=== PATIENT | male | born 1955 | race Caucasian/White ===

== ENCOUNTER 2020-02-17 06:21 | Day surgery (SDC) | payer SELFPAY ==
[2020-02-17 06:30] VITALS: BP 138/90; PULSE 86; RESP 18; TEMP 36.1; O2SAT 98
[2020-02-17] MEDS: Tropicam./Phenyleph. (1/2.5%) 5 ML BTL OD ×3 (06:43→06:49)
[2020-02-17] MEDS: Moxifloxacin-PF 1 MG/ML VIAL (07:33)
[2020-02-17] MEDS: Balanced Salt Soln.-PLUS 500 ML BAG (07:35)
[2020-02-17] MEDS: Lidocaine 1% Pres-Free 5 ML VIAL (07:35)
[2020-02-17] MEDS: Lidocaine 2% Jelly 6 ML SYR (07:36)
[2020-02-17] MEDS: Povidone-Iodine Ophth 30 ML BTL (07:37)
[2020-02-17] MEDS: Trypan Blue 0.06% 0.5 ML SYR (07:38)
[2020-02-17] MEDS: Tetracaine 0.5% 4 ML BTL OD (07:40)
--- NOTE | 2020-02-17 08:04 | W.PM.DSUDISC ---
Discharge Plan Disposition Patient Disposition: HOME Condition: Good Discharge Details Attending Provider: Robbie Gordon Primary Care Provider: Amisha Aponte [place] Meds and New Rx's Prescriptions: No Action aspirin 325 mg Tablet 325 mg PO DAILY RF: 0 metoprolol tartrate 100 mg tablet 100 mg PO BID RF: 0 digoxin 250 mcg (0.25 mg) tablet 250 mcg PO DAILY RF: 0 furosemide 20 mg tablet 20 mg PO QAM RF: 0 glipizide 5 mg tablet 5 mg PO BID RF: 0 metformin 500 mg tablet 1,000 mg PO BIDWMEAL RF: 0 Discharge Instructions Stand Alone Forms: Post-op Topical Cataract, Tonia Ash (DSU) Discharge Orders Discharge Orders: Discharge Order (Routine); Ordered 02/17/20 Ordered By: Robbie Gordon DS: Diagnosis Discharge Diagnosis (1) Nuclear sclerotic cataract of right eye: Status: Acute (2) Posterior subcapsular age-related cataract, right eye: Status: Acute
--- NOTE | 2020-02-17 08:05 | W.PM.OP ---
Date of service: 02/17/20 Time of Service: 08:06 Operative Note Operative Note DATE OF PROCEDURE: 02/17/20 PRE-OP DIAGNOSIS: Moderate nuclear cataract right eye; poor red reflex, right eye POST-OP DIAGNOSIS: same PROCEDURE: Cataract extraction using phacoemulsification with intraocular lens implantation, right eye, using capsular staining with Vision Blue SURGEON: Robbie Gordon ANESTHESIA: MAC (with local sub-tenon's anesthetic injection) PATHOLOGY: none sent COMPLICATIONS: None Patient was transported to: same day Patient's condition: stable Implants: Jasvir and Jasvir / [employer] Tecnis [id number] Indications: Progressive visual loss due to cataract, right eye Procedure Description: CATARACT SURGERY OPERATIVE REPORT PREOPERATIVE DIAGNOSIS: 1. Mononuclear with posterior subcapsular cataract, right eye 2. Poor red reflex secondary to #1 POSTOPERATIVE DIAGNOSIS: Same OPERATION: 1. Cataract extraction using phacoemulsification with posterior chamber intraocular lens implant, right eye. 2. Capsular staining with Vision Blue IOL: IOL Double Cut Off Saw Operator/Model: Jasvir & Jasvir / MINNIE Tecnis [id number] IOL Power: + 19.50 diopters IOL Serial Number: [id number] Optic Diameter: 6.0mm Haptic/Overall Diameter: 13.0mm PHACO INFO: Lazarus Centurion Vision System with OZil and Active Fluidics Cumulative Dispersed Energy (CDE): 12.8 seconds SURGEON: Robbie Gordon MD, MAGDY ANESTHESIA: Monitored Anesthesia Care (MAC), with local sub-tenon's anesthetic infiltration COMPLICATIONS: None SPECIMENS: None INDICATIONS FOR PROCEDURE: The patient is a 58-YEAR-OLD eye. Dense posterior subcapsular cataract in the right eye with moderate nuclear cataract. Visual acuity is less than 20/400. PROCEDURE: The correct surgical eye was identified and marked as the right eye and the pupil was dilated in the preoperative area using mydriatics and cycloplegics. The dilated pupil size was 6.5 mm. Oral sedation was administered in the form of an Imprimis MKO Melt (midazolam 3mg/ketamine 25mg/ondansetron 2mg). The patient was brought to the operating room where cardiopulmonary monitoring was instituted and surgical time-out was performed, confirming the correct operative eye and IOL power. Topical anesthesia was administered and ophthalmic povidone-iodine 5% was instilled into the conjunctival fornices. Lidocaine gel was applied to the cornea and the dario-ocular area was prepped with Betadine 10% solution and draped in the usual sterile fashion for intraocular surgery, including an aperture drape. A Tegaderm transparent film dressing was cut in half and used to cover the lashes and lid margins. Care was taken to sequester the lashes and lid margins under the Tegaderm dressing. A lid speculum was placed between the lids of the operative eye and the Ajay-Shanice operating microscope was maneuvered into position. Charlotte scissors were then used to make a conjunctival buttonhole approximately 6mm posterior to the limbus in the inferonasal quadrant. Blunt dissection was carried out to expose bare sclera, and a blunt-tipped sub-tenon?s anesthesia cannula was introduced and passed posteriorly along the globe where non-preserved plain lidocaine was injected into posterior sub-Tenon?s space. A sideport knife was used to make a paracentesis port inferotemporally. Intraocular phenylephrine/lidocaine was injected into the anterior chamber. Air was injected into the anterior chamber, followed by Vision Blue, which was painted over the anterior capsule and then irrigated out with BSS. The anterior chamber was filled with Healon Pro. A 2.4mm keratome knife was used to create a half-thickness groove at the limbus and then to construct a three-plane near-clear corneal tunnel extending 2.0mm into clear cornea superiortemporally. A flap was raised on the anterior capsule and capsulorhexis forceps were used to complete a continuous curvilinear capsulorhexis of 5.0 mm. The capsule was noted. Balanced salt solution was then used to perform cortical cleaving hydrodissection and nuclear hydrodelineation until the lens could be freely rotated within the capsular bag. The lens nucleus was then disassembled and removed within the capsular bag and iris plane using phacoemulsification. Residual cortical material was removed using the I/A handpiece. The posterior capsule was carefully polished to remove as much residual lens epithelial cells as safely possible. The capsular bag was then inflated and the anterior chamber deepened with viscoelastic. The lens implant described above was inserted into the capsular bag using the MINNIE [place] Injector. A Kuglen hook was used to dial the IOL into position. Residual viscoelastic was then removed first from posterior to the IOL, then from the anterior chamber using the I/A handpiece. The lens implant was noted to center nicely within the capsular bag. The incisions were stromally hydrated, and the anterior chamber was reformed using BSS. Then 0.5cc of moxifloxacin 1.0mg/ml were injected into the capsular bag and anterior chamber. The incisions were checked with a Weck spear and found to be secure. Several drops of ophthalmic povidone-iodine 5% were then applied to the eye followed by two drops of Imprimis combination prednisolone/moxifloxacin/nepafenac solution. The drapes were removed and a clear plastic protective eye shield was placed over the eye. The patient was then returned to Same Day Surgery in stable condition.
[2020-02-17 08:30] VITALS: BP 111/77; PULSE 66; RESP 16; TEMP 36.6; O2SAT 97
== END 2020-02-17 08:35 | disposition home or self-care (01) ==
PROVIDERS: PCP Internal Medicine; Visit Provider Ophthalmology
PROC: (CPT 66984; principal; 2020-02-17 07:30)
DX: H25.11 Age-related nuclear cataract, right eye (principal); I48.91 Unspecified atrial fibrillation; I50.9 Heart failure, unspecified; E11.9 Type 2 diabetes mellitus without complications
CPT/HCPCS: 66984; V2632

== ENCOUNTER 2020-03-02 07:31 | Day surgery (SDC) | payer SELFPAY ==
[2020-03-02 07:35] VITALS: BP 142/84; PULSE 77; RESP 18; TEMP 36.2; O2SAT 98
[2020-03-02] MEDS: Tropicam./Phenyleph. (1/2.5%) 5 ML BTL OS ×3 (07:47→07:58)
[2020-03-02] MEDS: Tetracaine 0.5% 4 ML BTL OS (08:53)
[2020-03-02] MEDS: Povidone-Iodine Ophth 30 ML BTL (08:53)
[2020-03-02] MEDS: Lidocaine 2% Jelly 6 ML SYR (08:54)
[2020-03-02] MEDS: Lidocaine 1% Pres-Free 5 ML VIAL (08:58)
[2020-03-02] MEDS: Balanced Salt Soln.-PLUS 500 ML BAG (09:02)
[2020-03-02] MEDS: Trypan Blue 0.06% 0.5 ML SYR (09:07)
[2020-03-02] MEDS: Moxifloxacin-PF 1 MG/ML VIAL (09:19)
--- NOTE | 2020-03-02 09:24 | W.PM.DSUDISC ---
Discharge Plan Disposition Patient Disposition: HOME Condition: Good Discharge Details Reason For Visit: CATARACT Attending Provider: Robbie Gordon Primary Care Provider: Amisha Aponte Home Meds and New Rx's Prescriptions: No Action aspirin 325 mg Tablet 325 mg PO DAILY RF: 0 metoprolol tartrate 100 mg tablet 100 mg PO BID RF: 0 digoxin 250 mcg (0.25 mg) tablet 250 mcg PO DAILY RF: 0 furosemide 20 mg tablet 20 mg PO QAM RF: 0 glipizide 5 mg tablet 5 mg PO BID RF: 0 metformin 500 mg tablet 1,000 mg PO BIDWMEAL RF: 0 Discharge Instructions Stand Alone Forms: Post-op Topical Cataract, Tonia Ash (DSU) Discharge Orders Discharge Orders: Discharge Order (Routine); Ordered 03/02/20 Ordered By: Robbie Gordon DS: Diagnosis Discharge Diagnosis (1) Posterior subcapsular age-related cataract of left eye: Status: Resolved (2) Nuclear sclerotic cataract of left eye: Status: Resolved
--- NOTE | 2020-03-02 09:27 | ROE_ITS ---
Date of service: 03/02/20 Time of Service: 09:28 Operative Note Operative Note DATE OF PROCEDURE: 03/02/20 PRE-OP DIAGNOSIS: Nuclear/posterior subcapsular cataract, left eye POST-OP DIAGNOSIS: same PROCEDURE: Cataract extraction using phacoemulsification with intraocular lens implant, left eye, using capsular staining with Vision Blue SURGEON: Robbie Gordon ANESTHESIA: MAC (with local sub-tenon's anesthetic injection) COMPLICATIONS: None Patient was transported to: same day Patient's condition: stable Implants: Jasvir and Jasvir / [employer] Tecnis [id number] Indications: Progressive decreased vision due to cataract, left eye, with poor red reflex Procedure Description: CATARACT SURGERY OPERATIVE REPORT PREOPERATIVE DIAGNOSIS: 1. Nuclear/posterior subcapsular cataract, left eye 2. Poor red reflex secondary to #1 POSTOPERATIVE DIAGNOSIS: Same OPERATION: 1. Cataract extraction using phacoemulsification with posterior chamber intraocular lens implant, left eye. 2. Capsular staining with Vision Blue IOL: IOL Driller Operator/Model: Jasvir & Jasvir / MINNIE Tecnis [id number] IOL Power: + 19.50 diopters IOL Serial Number: [id number] Optic Diameter: 6.0 mm Haptic/Overall Diameter: 13.0 mm PHACO INFO: Lazarus Centurion Vision System with OZil and Active Fluidics Cumulative Dispersed Energy (CDE): 8.48 seconds SURGEON: Robbie Gordon MD, MAGDY ANESTHESIA: Monitored [facility] Care (MAC), with local sub-tenon's anesthetic infiltration COMPLICATIONS: None SPECIMENS: None INDICATIONS FOR PROCEDURE: The patient is a 64-year-old gentleman with history of diminished visual acuity in both eyes secondary to the development of bilateral nuclear and posterior subcapsular cataract. He has already undergone cataract surgery of the right eye and is doing well postoperatively. Now presents for cataract surgery left eye. PROCEDURE: The correct surgical eye was identified and marked as the left eye and the pupil was dilated in the preoperative area using mydriatics and cycloplegics. The dilated pupil size was 8.0 mm. Oral sedation was administered in the form of an Imprimis MKO Melt (midazolam 3mg/ketamine 25mg/ondansetron 2mg). The patient was brought to the operating room where cardiopulmonary monitoring was instituted and surgical time-out was performed, confirming the correct operative eye and IOL power. Topical anesthesia was administered and ophthalmic povidone-iodine 5% was instilled into the conjunctival fornices. Lidocaine gel was applied to the cornea and the dario-ocular area was prepped with Betadine 10% solution and draped in the usual sterile fashion for intraocular surgery, including an aperture drape. A Tegaderm transparent film dressing was cut in half and used to cover the lashes and lid margins. Care was taken to sequester the lashes and lid margins under the Tegaderm dressing. A lid speculum was placed between the lids of the operative eye and the Ajay-Shanice operating microscope was maneuvered into position. Charlotte scissors were then used to make a conjunctival buttonhole approximately 6mm posterior to the limbus in the inferonasal quadrant. Blunt dissection was carried out to expose bare sclera, and a blunt-tipped sub-tenon?s anesthesia cannula was introduced and passed posteriorly along the globe where non- preserved plain lidocaine was injected into posterior sub-Tenon?s space. A sideport knife was used to make a paracentesis port superiorly/superiortemporally. Intraocular phenylephrine/lidocaine was injected int the anterior chamber.. Air was then injected into the anterior chamber, followed by Vision Blue, which was painted over the anterior capsule and then irrigated out using BSS. The anterior chamber was filled with Healon Pro. A 2.4mm keratome knife was used to create a half-thickness groove at the limbus and then to construct a three-plane near-clear corneal tunnel extending 2.0mm into clear cornea at the 3:00 position. A flap was raised on the anterior capsule and capsulorhexis forceps were used to complete a continuous curvilinear capsulorhexis of 5.0 mm. Capsule was noted to be quite thin with a deep anterior chamber. Balanced salt solution was then used to perform cortical cleaving hydrodissection and nuclear hydrodelineation until the lens could be freely rotated within the capsular bag. The lens nucleus was then disassembled and removed within the capsular bag and iris plane using phacoemulsification. Residual cortical material was removed using the 45-degree angled silicone I/A tip with 0.3mm port. The posterior capsule was carefully polished to remove as much residual lens epithelial cells as safely possible. The capsular bag was then inflated and the anterior chamber deepened with viscoelastic. The lens implant described above was inserted into the capsular bag using the MINNIE [place] Injector. A Kuglen hook was used to dial the IOL into position. Residual viscoelastic was then removed first from posterior to the IOL, then from the anterior chamber using the I/A handpiece. The lens implant was noted to center nicely within the capsular bag. The incisions were stromally hydrated, and the anterior chamber was reformed using BSS. Then 0.5cc of moxifloxacin 1.0mg/ml were injected into the capsular bag and anterior chamber. The incisions were checked with a Weck spear and found to be secure. Several drops of ophthalmic povidone-iodine 5% were then applied to the eye followed by two drops of Imprimis combination prednisolone/moxifloxacin/nepafenac solution. The drapes were removed and a clear plastic protective eye shield was placed over the eye. The patient was then returned to Same Day Surgery in stable condition.
[2020-03-02 09:50] VITALS: BP 123/78; PULSE 60; RESP 16; TEMP 36.1; O2SAT 99
== END 2020-03-02 09:50 | disposition home or self-care (01) ==
PROVIDERS: PCP Internal Medicine; Visit Provider Ophthalmology
PROC: (CPT 66984; principal; 2020-03-02 09:30)
DX: H25.042 Posterior subcapsular polar age-related cataract, left eye (principal)
CPT/HCPCS: 66984; V2632

== ENCOUNTER 2024-01-10 06:23 | Emergency (ER) | payer SELFPAY ==
[2024-01-10] VITALS (57 sets, daily range): BP systolic 106–151; BP diastolic 64–125; PULSE 65–173; RESP 9–30; O2SAT 99
--- NOTE | 2024-01-10 06:15 | RT.EKG_ITS ---
APPROVED REPORT Exam: Resting ECG Reason for Exam: SOB Patient Location: E HR:141 bpm ECG Measurements Heart Rate 141 AXIS MS [id number] P [id number] QRSd 93 QRS 85 QT 333 T [id number] QTc 511 Conclusion Atrial fibrillation...? atrial activity Repolarization abnormality, prob rate related...ST dep, T neg, tachycardia Prolonged QT interval...QTc >500mS Physician: no stemi
[2024-01-10] MEDS: Furosemide 40 MG/4 ML VIAL IVP (06:35)
[2024-01-10 06:39] LABS: Abs Immature Grans 0.03 10^3/uL (0.0-0.06); Absolute Basophil Count 0.05 10^3/uL (0.0-0.2); Absolute Lymphocyte Count 1.62 10^3/uL (1.2-3.4); Absolute Monocyte Count 0.72 10^3/uL (0.1-0.8); Absolute Neutrophil Count 5.84 10^3/uL (1.2-6.7); Basophils % 0.6 %; Eosinophils % 1.2 %; HCT 47.5 % (40.0-50.0); HGB 15.5 g/dL (13.5-17.5); Immature Grans % 0.4 %; Lymphocytes % 19.4 %; MCH 29.9 pg (27.0-33.0); MCHC 32.6 % (32.0-36.0); MCV 92 fL (80-95); Monocytes % 8.6 %; Neutrophils % 69.8 %; Platelet Count 199 10^3/uL (130-400); RBC 5.19 10^6/uL (4.36-5.78); RDW 14.6 % (11.8-14.1); RDW-SD 48.6 fL; WBC 8.36 10^3/uL (4.4-10.8)
[2024-01-10] MEDS: nitroGLYcerin in D5W 50 MG/250 ML BTL 15 MG IV (06:39)
--- NOTE | 2024-01-10 06:43 | DI.RAD_ITS ---
Exam(s) XR PORTABLE CHEST AP EXAM: XR PORTABLE CHEST AP CLINICAL HISTORY: SOB TECHNIQUE: 2D digital imaging was performed of the chest. One image was obtained. An AP view was ob tained. COMPARISON: No exams were available for comparison FINDINGS: MEDIASTINUM: Normal. HEART: Mild cardiomegaly. PULMONARY VASCULATURE: Normal. LUNGS: No focal consolidating infiltrates. Atelectasis or scarring is seen in the lungs. PLEURAL SPACE: No pleural effusion or pneumothorax. BONE:Within normal limits for the patient's age. OTHER FINDINGS:Normal. IMPRESSION: No focal consolidating infiltrates. DATA REPOSITORY: RADIATION DOSE DELIVERED:
[2024-01-10] MEDS: Albuterol/Ipratropium 3 ML UPD VIAL UPD (06:44)
[2024-01-10 06:54] LABS: INR 1.1 (0.9-1.1); PTT Activated 25.6 sec (23.6-32.8); Prothrombin Time 11.4 sec (9.1-11.1)
[2024-01-10 07:02] LABS: ALT 24 U/L (16-63); AST 20 U/L (15-37); Albumin 3.6 g/dL (3.4-5.0); Alkaline Phosphatase 71 U/L (46-116); Anion Gap 13.7 mmol/L (3-11); BUN 27 mg/dL (7-18); CO2 24.3 mmol/L (21.0-32.0); CREATININE 1.7 mg/dL (0.70-1.30); Calcium 9.3 mg/dL (8.5-10.1); Chloride 99 mmol/L (98-107); Estimated GFR 42.83 (mL/min/1.73m2); Glucose 197 mg/dL (74-106); NT-proBNP 2296 pg/mL (<300); Potassium 3.9 mmol/L (3.5-5.1); Sodium 137 mmol/L (136-145); Total Protein 6.9 g/dL (6.4-8.2); Troponin I 50 ng/L (< or =60)
--- NOTE | 2024-01-10 07:04 | W.EDPROG ---
Medical Decision Making Quality:SDOH Health Related Social Needs: No Data to Display Discharge Plan Discharge Details Chief Complaint: SOB Primary Care Provider: Amisha Aponte ED Provider: Hugo Flores Home Meds and New Rx's Prescriptions: No Action aspirin 325 mg Tablet 325 mg PO DAILY metoprolol tartrate 100 mg tablet 100 mg PO BID Patient Comments: TAKE 1 TABLET BY MOUTH TWICE DAILY digoxin 250 mcg (0.25 mg) tablet 250 mcg PO DAILY Patient Comments: TAKE 1 TABLET BY MOUTH ONCE DAILY furosemide 20 mg tablet 20 mg PO QAM Patient Comments: TAKE 1 TABLET BY MOUTH ONCE DAILY IN THE MORNING glipizide 5 mg tablet 5 mg PO BID Patient Comments: TAKE 1 TABLET BY MOUTH TWICE DAILY FOR 30 DAYS metformin 500 mg tablet 1,000 mg PO BIDWMEAL Patient Comments: TAKE 2 TABLETS BY MOUTH TWICE DAILY WITH MEALS
[2024-01-10] MEDS: dilTIAZem 25 MG/5 ML VIAL 15 MG IVP (07:16)
[2024-01-10 07:20] LABS: COVID-19 PCR Negative (Negative); Influenza A PCR Negative (Negative); Influenza B PCR Negative (Negative); RSV PCR Negative (Negative); Source Nasopharynx
--- NOTE | 2024-01-10 07:27 | ED.GENADUL_ITS ---
Discharge Plan Discharge Details Chief Complaint: SOB Primary Care Provider: Amisha Aponte ED Provider: Hugo Flores Home Meds and New Rx's Prescriptions: No Action aspirin 325 mg Tablet 325 mg PO DAILY metoprolol tartrate 100 mg tablet 100 mg PO BID Patient Comments: TAKE 1 TABLET BY MOUTH TWICE DAILY digoxin 250 mcg (0.25 mg) tablet 250 mcg PO DAILY Patient Comments: TAKE 1 TABLET BY MOUTH ONCE DAILY furosemide 20 mg tablet 20 mg PO QAM Patient Comments: TAKE 1 TABLET BY MOUTH ONCE DAILY IN THE MORNING glipizide 5 mg tablet 5 mg PO BID Patient Comments: TAKE 1 TABLET BY MOUTH TWICE DAILY FOR 30 DAYS metformin 500 mg tablet 1,000 mg PO BIDWMEAL Patient Comments: TAKE 2 TABLETS BY MOUTH TWICE DAILY WITH MEALS HPI General Date/Time Provider Initiated Documentation: 01/10/24 06:24 . HPI Narrative: This is a 68-year-old male with a past medical history of previous smoking, atrial fibrillation on digoxin in the past, congestive heart failure on furosemide in the past, type 2 diabetes, who no longer takes any medications except for his daily aspirin and does not see a doctor because I fired him. He presents today for shortness of breath. The patient states that for the last month he has been short of breath. He admits to swelling in his lower extremities. He states that it was worse tonight than normal. He denies any chest pain, cough, fever or chills. He denies any positional chest pain. He denies any vomiting or diarrhea. No other complaints at this time. No other modifying factors. He denies history of heart attack before. He is not on any blood thinner use. Related Data Home Medications ?Medication ?Instructions ?Recorded ?Confirmed aspirin 325 mg tablet 325 mg PO DAILY 02/14/20 01/10/24 digoxin 250 mcg (0.25 mg) tablet 250 mcg PO DAILY 02/14/20 01/10/24 furosemide 20 mg tablet 20 mg PO QAM 02/14/20 01/10/24 glipizide 5 mg tablet 5 mg PO BID 02/14/20 01/10/24 metformin 500 mg tablet 1,000 mg PO BIDWMEAL 02/14/20 01/10/24 metoprolol tartrate 100 mg tablet 100 mg PO BID 02/14/20 01/10/24 Allergies Allergy/AdvReac Type Severity Reaction Status Date / Time ibuprofen Allergy Severe Anaphylaxsi Unverified 01/10/24 06:30 s General Stated Complaint: SOB GETACHEW: 2 Review of Systems All systems reviewed & are unremarkable except as noted in HPI and below Exam Narrative Exam Narrative: 1.Const: Well-nourished, Well-developed, appearing stated age 2.Eyes: PERRL, no conjunctival injection, and symmetrical lids. 3.ENT: Atraumatic external nose and ears. Moist MM. Neck: Symmetric, trachea midline, No thyromegaly. 4.CVS: +S1/S2, No murmurs or gallops. Peripheral pulses 2+ and equal in all extremities. Brisk capillary refill in all extremities. 5.RESP: Tachypneic, 1-2 word sentences. Saturating 99% on room air. Crackles at the bases. No wheezes or rhonchi. 6.GI: Soft, Nontender/Nondistended, No hepatosplenomegaly. No guarding or rebound. 7.MSK: Normocephalic/Atraumatic, Extremities w/o deformity or ttp No cyanosis or clubbing, Normal movement of all extremities. +1 pitting edema bilaterally. No calf tenderness. 8.Skin: Warm, Dry. No rashes or lesions. 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 Sensation grossly intact, no focal neurologic deficits. 10.Psych: (AAO) x3. Appropriate mood and affect Course Vital Signs Vital signs: Vital Signs Pulse 130 H 01/10/24 06:26 Respiratory Rate 30 H 01/10/24 06:26 Blood Pressure 145/102 H 01/10/24 06:26 Pulse Oximetry 99 01/10/24 06:26 Pulse 110 H 01/10/24 07:16 Pulse 114 H 01/10/24 06:41 Respiratory Rate 15 01/10/24 06:41 Respiratory Effort Short of Breath 01/10/24 06:32 Respiratory Depth Shallow 01/10/24 06:32 Respiratory Pattern Tachypnea 01/10/24 06:32 Blood Pressure 121/85 01/10/24 07:16 Blood Pressure Mean 108 01/10/24 06:41 Blood Pressure Position Sitting 01/10/24 06:26 Pulse Oximetry 99 01/10/24 06:26 Oxygen Delivery Method Room Air 01/10/24 06:26 Oxygen Flow Rate 0 01/10/24 06:26 Lab/Test Results Lab/Test Results: Laboratory Tests Range/Units 01/10/24 01/10/24 06:30 06:37 WBC (4.4-10.8) 10^3/uL 8.36 RBC (4.36-5.78) 10^6/uL 5.19 Hgb (13.5-17.5) g/dL 15.5 Hct (40.0-50.0) % 47.5 MCV (80-95) fL 92 MCH (27.0-33.0) pg 29.9 MCHC (32.0-36.0) % 32.6 RDW (11.8-14.1) % 14.6 H Plt Count (130-400) 10^3/uL 199 MPV (8.0-11.0) fL 10.0 Immature Gran % % 0.4 Neutrophils % % 69.8 Lymphocytes % % 19.4 Monocytes % % 8.6 Eosinophils % % 1.2 Basophils % % 0.6 Nucleated RBC % (0.0-0.3) % 0.0 Absolute Neutrophils (1.2-6.7) 10^3/uL 5.84 Absolute Lymphocytes (1.2-3.4) 10^3/uL 1.62 Absolute Monocytes (0.1-0.8) 10^3/uL 0.72 Absolute Eosinophils (0.0-0.7) 10^3/uL 0.10 Absolute Basophils (0.0-0.2) 10^3/uL 0.05 PT (9.1-11.1) sec 11.4 H INR (0.9-1.1) 1.1 APTT (23.6-32.8) sec 25.6 Sodium (136-145) mmol/L 137 Potassium (3.5-5.1) mmol/L 3.9 Chloride (98-107) mmol/L 99 Carbon Dioxide (21.0-32.0) mmol/L 24.3 Anion Gap (3-11) mmol/L 13.7 H BUN (7-18) mg/dL 27 H Creatinine (0.70-1.30) mg/dL 1.7 H Est GFR (CKD-EPI 2020) (mL/min/1.73m2) 42.83 Glucose (74-106) mg/dL 197 H Calcium (8.5-10.1) mg/dL 9.3 Total Bilirubin (0.2-1.0) mg/dL 0.70 AST (15-37) U/L 20 ALT (16-63) U/L 24 Alkaline Phosphatase (46-116) U/L 71 Troponin I (< or =60) ng/L 50 NT-Pro-B Natriuret Pep (<300) pg/mL 2296 H Total Protein (6.4-8.2) g/dL 6.9 Albumin (3.4-5.0) g/dL 3.6 COVID-19 Source Nasopharynx SARS-CoV-2 (PCR) (Negative) Negative Influenza Type A (PCR) (Negative) Negative Influenza Type B (PCR) (Negative) Negative RSV (PCR) (Negative) Negative Medical Decision Making This is a 68-year-old male with a past medical history of previous smoking, atrial fibrillation on digoxin in the past, congestive heart failure on furosemide in the past, type 2 diabetes, who no longer takes any medications except for his daily aspirin and does not see a doctor because I fired him. He presents today for shortness of breath. The patient states that for the last month he has been short of breath. He admits to swelling in his lower extremities. He states that it was worse tonight than normal. He denies any chest pain, cough, fever or chills. He denies any positional chest pain. He denies any vomiting or diarrhea. No other complaints at this time. No other modifying factors. He denies history of heart attack before. He is not on any blood thinner use. Exam demonstrates a conversationally dyspneic patient, however he is saturating well at room air. +1 to +2 pitting edema in the lower extremities, mild crackles at the bases. No significant wheeze though. He denies fever or chills. Differential includes CHF, less likely reactive airway disease. PE is on the differential, pneumonia less likely given no cough or fever. EKG shows A-fib with a rapid response in the 140s, which certainly could be potentially contributing to a CHF component. Patient is notably hypertensive with a narrow pulse pressure, we will give 40 of Lasix, start IV nitro at 50, give a breathing treatment, monitor closely and reassess. Will give 15 of diltiazem for his A- fib with a rapid rate. 7:43 AM On reassessment the patient is doing much better. His conversational dyspnea has completely resolved, he has urinated a few times, his heart rate has come down after the diltiazem. He is demonstrating significant clinical improvement. Still pending D-dimer and repeat troponin at this time. Patient will be signed out to my colleague Dr. Nicole Carvajal for follow-up on labs. FINDINGS: Tubes, catheters and devices: Overlying monitoring leads. Lungs: Right mid lung field opacity. Few probable left lower lung field areas of linear atelectasis. Pleural spaces: No pleural effusion. No pneumothorax. Heart/Mediastinum: Heart within normal range for projection. Vasculature: Aortic tortuosity. Bones/joints: Unremarkable. IMPRESSION: Right mid lung field opacity. Consider atelectasis or pneumonia. Thank you for allowing us to participate in the care of your patient. Dictated and Authenticated by: Hernán Martinez MD 01/10/2024 7:28 AM Eastern Time ([place] & [place]) Quality:SDOH Health Related Social Needs: No Data to Display PFSH All Active Problems Nuclear sclerotic cataract of right eye (Acute) Posterior subcapsular age-related cataract, right eye (Acute) Medical History Elevated hemoglobin A1c 9.9% per H&P note Tricuspid regurgitation mild per note Atrial fibrillation with rapid ventricular response Diabetes mellitus CHF (congestive heart failure) Surgical History History of cataract surgery History of tonsillectomy and adenoidectomy Social History Smoking/Tobacco Use Status: Former Tobacco Use Quit Date: 05/25/89 Smoking risk assessment performed?: Yes Alcohol Intake: current Alcohol Intake frequency: holidays/special occasions only Alcohol type: hard liquor Drug use: Never Substance use type: does not use Do you feel safe at home: Yes Do you feel safe in your relationship?: Yes
--- NOTE | 2024-01-10 07:29 | DI.VRAD_ITS ---
PROCEDURE INFORMATION: Exam: XR Chest Exam date and time: 01/10/2024 6:41 AM Age: 68 years old Clinical indication: Shortness of breath; Patient HX: SOB TECHNIQUE: Imaging protocol: Radiologic exam of the chest. Views: 1 view. COMPARISON: No prior studies were available at the time of this dictation. FINDINGS: Tubes, catheters and devices: Overlying monitoring leads. Lungs: Right mid lung field opacity. Few probable left lower lung field areas of linear atelectasis. Pleural spaces: No pleural effusion. No pneumothorax. Heart/Mediastinum: Heart within normal range for projection. Vasculature: Aortic tortuosity. Bones/joints: Unremarkable. IMPRESSION: Right mid lung field opacity. Consider atelectasis or pneumonia. Dictated and Authenticated by: Hernán Martinez MD. Ordering:ARUNA Arias MD
--- NOTE | 2024-01-10 07:36 | NUR.NOTE ---
Nursing Note: pt ambulated to restroom per his request. Reports voiding large amount in toilet; not measured by staff. Pt reports feeling better than when he arrived, and appears mildly short of breath upon ambulating back to room. There is no noted increased WOB and he is not orthopnic or struggling; 3-5 word dyspnea continues.
[2024-01-10 07:59] LABS: D-Dimer 1119 ng/mlFEU (<500)
--- NOTE | 2024-01-10 08:00 | DI.CT_ITS ---
Exam(s) CT CHEST PE CTA EXAM: CT CHEST PE CTA CLINICAL HISTORY: eval for PE. TECHNIQUE: Imaging Protocol: Axial CT angiography was performed with multi-slice acquisition and mu lti-planar and/or 3D reconstructions. CONTRAST MATERIAL: Intravenous: Omnipaque 350 contrast volume:100 mL COMPARISON: CR,XR XR PORTABLE CHEST AP from 01/10/2024 FINDINGS: Tracheobronchial tree: Patent where visualized. No bronchiectasis. Pulmonary parenchyma: There is a small to moderate size right pleural effusion and or small left pleu ral effusion. Atelectatic changes are seen in the right lung base. No focal consolidating infiltrat es are present. No architectural distortion. Pulmonary Arteries: No evidence of filling defect to suggest pulmonary emboli. Mediastinum and Tosin: No dominant adenopathy or fluid collection. The esophagus is unremarkable. Visualized thyroid gland: The left lobe of the thyroid gland is enlarged. There appears to be a hypo dense lesion in the left lobe. Nonemergent thyroid ultrasound is recommended for further evaluation. Pleura: No pneumothorax. Heart: Mild cardiomegaly. Coronary artery calcifications are present. No pericardial effusion. Aorta: Thoracic aorta non-dilated. Due to the timing of the bolus, the aorta is suboptimal opacified. Upper abdomen: Unremarkable. Soft tissues: Unremarkable. Bones: Within normal limits for the patient's age. IMPRESSION: 1. No evidence of a pulmonary embolism or thoracic aortic aneurysm. 2. Cardiomegaly. 3. Small to moderate right and small left pleural effusion. 4. Mild atelectasis in the right lung base. No focal consolidating infiltrate. RADIATION DOSE DELIVERED: Total DLP DATA REPOSITORY: All CT scans at this facility are submitted to the National Radiology Data Registry (NRDR) Dose Index Registry (DIR) with the [employer] ([employer]). RADIATION OPTIMIZATION: All CT scans at this facility use at least one of these dose optimization te chniques: automated exposure control; mA and/or kV adjustment per patient size (includes targeted exa ms where dose is matched to clinical indication); or iterative reconstruction.
[2024-01-10] MEDS: Normal Saline - Diluent 50 ML VIAL IJ (08:30)
[2024-01-10] MEDS: Omnipaque 350 MG/ML 100 ML BTL IJ (08:30)
--- NOTE | 2024-01-10 09:03 | DI.VRAD_ITS ---
PROCEDURE INFORMATION: Exam: CTA Chest With Contrast Exam date and time: 01/10/2024 8:24 AM Age: 68 years old Clinical indication: Other: Trauma, lateral ankle pain TECHNIQUE: Imaging protocol: Computed tomographic angiography of the chest with contrast. Exam focused on the arteries. 3D rendering (Not supervised by radiologist): MIP and/or 3D reconstructed images were created by the technologist. Contrast material: OMNIPAQUE 350; Contrast volume: 100 ml; Contrast route: INTRAVENOUS (IV); COMPARISON: CR XR PORTABLE CHEST AP 01/10/2024 6:41 AM FINDINGS: Pulmonary arteries: Normal. No pulmonary emboli. Aorta: Unremarkable. No aortic aneurysm. No aortic dissection. Lungs: There is minimal bibasilar atelectasis. No consolidation. No masses. Pleural spaces: Moderate right and small left pleural effusions. There is no evidence of pneumothorax. Heart: Moderate cardiomegaly. Coronary arteries: There is coronary artery calcification. Lymph nodes: Unremarkable. No enlarged lymph nodes. Bones/joints: Unremarkable. No acute fracture. Soft tissues: Unremarkable. IMPRESSION: CHF fluid overload. No pulmonary embolism. Dictated and Authenticated by: Penelope Ortiz MD. Ordering:ARUNA Arias MD
--- NOTE | 2024-01-10 09:24 | ED.PROG_ITS ---
Date of service: 01/10/24 Time of Service: 09:24 Medical Decision Making Care assumed from outgoing provider Dr. Flores. Patient is a 68-year-old gentleman who has been noncompliant with medical therapy and who presented to the emergency department with severe shortness of breath. Initial concerns for hypertensive emergency pulmonary edema. Patient was started on a nitroglycerin drip which was eventually titrated off. He was noted to have A-fib with RVR and was given diltiazem for rate control. Blood work was concerning for a creatinine of 1.7, baseline is not known. Troponin is negative, but BNP elevated at 2300. The D-dimer was obtained and this is also elevated over 1000. A CTA was obtained that did not demonstrate pulmonary embolism, but did demonstrate cardiomegaly and pulmonary edema. The patient has been monitored on telemetry with out signs of hypoxia. Rate control has improved blood pressure initially low after nitroglycerin drip but has returned back up to appropriate levels. I feel that the patient would benefit from hospitalization for further diuresis and management of his CHF and reinitiation of medications. The patient has decided to go refused hospitalization at this time. I had a long discussion with the patient regarding risks, benefits, and alternatives to my recommended treatment plan, which includes hospitalization, echo, diuresis, heart rate and blood pressure management and the patient declined, voicing understanding of the risks but preferring instead to leave against medical advice. Some of the risks we specifically discussed included permanent disability or . I discussed with the patient that they were always welcome back to this department should they change their mind, and that regardless they should follow up with their primary care doctor at the soonest possible opportunity. All questions were answered and the patient left AMA in unchanged condition. Medical Records Medical records reviewed: Yes I reviewed the patient's medical records. Lab Data Lab results reviewed: Yes I reviewed the patient's lab results. Quality:SDOH Health Related Social Needs: No Data to Display Sign Out Sign Out Data: Sign Out Comment: Presented with notable conversational dyspnea, some evidence of fluid overload, patient was started on nitro, Lasix, breathing treatment and diltiazem. Notable clinical improvement at this time. Patient feels much better. Pending D-dimer and repeat troponin. Last updated by Hugo Flores DO at 01/10/24 07:45 Discharge Plan Disposition Patient Disposition: Against Medical Advice Condition: Stable Discharge Details Clinical Impression: CHF (congestive heart failure), Hypertension, Shortness of breath, Volume overload, Atrial fibrillation Primary Care Provider: Amisha Aponte ED Provider: Kwame Jones Home Meds and New Rx's Prescriptions: Continued metformin 500 mg tablet 1,000 mg PO BIDWMEAL Qty: 30 0RF metoprolol tartrate 100 mg tablet 100 mg PO BID Qty: 30 0RF digoxin 250 mcg (0.25 mg) tablet 250 mcg PO DAILY Qty: 30 0RF furosemide 20 mg tablet 20 mg PO QAM Qty: 30 0RF glipizide 5 mg tablet 5 mg PO BID Qty: 30 0RF Discontinued aspirin 325 mg Tablet 325 mg PO DAILY Discharge Instructions Instructions: Heart Failure ED Additional Instructions: * You are choosing to leave AGAINST MEDICAL ADVICE. The plan was to admit you to the hospital for further rate control, IV diuresis, blood pressure management and support. * Please return to the emergency department at any time if you wish to resume your treatment plan. * I have sent Refills of your medication to the pharmacy and I advise you to start taking these medications daily. * you should take baby aspirin daily, and not full dose aspirin. . * Please weigh yourself daily * Please arrange for close follow-up with primary care
== END 2024-01-10 09:40 | disposition left against medical advice (07) ==
PROVIDERS: Student in an Organized Health Care Education/Training Program; Emergency Provider Emergency Medicine; PCP Internal Medicine
DX: R06.02 Shortness of breath (principal); I48.91 Unspecified atrial fibrillation; I50.9 Heart failure, unspecified; R60.0 Localized edema; Z53.29 Procedure and treatment not carried out because of patient's decision for other reasons; I10 Essential (primary) hypertension
CPT/HCPCS: 00123; 36415; 71275; 80053; 87637; 93005; 94640; 96365; 96375; 99285; 71045; 83880; 84484; 85025; 85379; 85610; 85730; 93010; 99283; J1940; J2305; J3490; J7620